=== PATIENT | male | born 1965 ===

== ENCOUNTER 2018-09-17 10:33 | Outpatient (REF) | payer MEDICARE, MEDICAID, SELFPAY ==
[2018-09-17 22:34] LABS: Abs Immature Grans 0.05 k/cumm (0.0-0.09); Absolute Basophil Count 0.02 k/cumm (0.0-0.2); Absolute Eosinophil Count 0.25 k/cumm (0.0-0.7); Absolute Lymphocyte Count 2.48 k/cumm (1.2-3.4); Absolute Monocyte Count 0.96 k/cumm (0.11-0.7); Absolute Neutrophil Count 7.43 k/cumm (1.2-6.7); Basophils % 0.2; Eosinophils % 2.2; HCT 41.1 % (40.0-50.0); HGB 13.9 g/dL (13.5-17.5); Immature Grans % 0.4; Lymphocytes % 22.2; Mean Corp. HGB Concentration 33.8 g/dL (32.0-36.0); Mean Corpuscular Hemoglobin 32.6 pg (27.0-33.0); Mean Corpuscular Volume 96.5 fL (80-95); Monocytes % 8.6; Neutrophils % 66.4; Platelet Count 213 x1000/uL (130-400); RBC 4.26 m/cumm (4.50-6.00); White Blood Cell Count 11.19 k/cumm (4.4-10.8)
[2018-09-17 23:01] LABS: Vitamin D 25 Total 28.9 ng/ml (30-100)
[2018-09-17 23:14] LABS: ALT 40 U/L (12-78); AST 21 U/L (15-37); Albumin 4.6 g/dL (3.4-5.0); Alkaline Phosphatase 59 U/L (46-116); Anion Gap 10.1 mmol/L (3-11); BUN 14 mg/dL (7-18); Bilirubin, Total 0.4 mg/dL (0.2-1.0); CO2 26.9 mmol/L (21.0-32.0); CREATININE 0.91 mg/dL (0.70-1.30); Calcium 9.4 mg/dL (8.5-10.1); Chloride 101 mmol/L (98-107); Cholesterol 206 mg/dL (50-200); Folate 5.7 ng/mL (8.6-20.0); GGT 46 U/L (15-85); Glucose 111 mg/dL (70-100); HDL Cholesterol 42 mg/dL (40-60); LDL CHOLESTEROL 141 mg/dL (<100); Potassium 4.5 mmol/L (3.5-5.1); Sodium 138 mmol/L (136-145); TSH 2.56 uIU/mL (0.358-3.74); Total Protein 7.8 g/dL (6.4-8.2); Triglyceride 96 mg/dL (30-150); Vitamin B12 791 pg/mL (193-986)
[2018-09-17 23:40] LABS: FREE T4 0.73 ng/dL (0.76-1.46)
[2018-09-18 16:22] LABS: T3,Free 3.1 pg/ml (2.8-5.3)
[2018-09-21 08:53] LABS: DHEA Sulfate 119 ug/dl (49-362)
== END 2018-09-17 10:53 ==
LOC: LBN 10:33
PROVIDERS: Visit Provider Acupuncturist
DX: R53.83 Other fatigue (principal); F33.8 Other recurrent depressive disorders; Z13.21 Encounter for screening for nutritional disorder; Z13.29 Encounter for screening for other suspected endocrine disorder; Z13.220 Encounter for screening for lipoid disorders
CPT/HCPCS: 80053; 80061; 82306; 82627; 83721; 82607; 82746; 82977; 84439; 84443; 84481; 85025

== ENCOUNTER 2019-01-01 10:21 | Outpatient (REF) | payer MEDICARE, SELFPAY ==
[2019-01-01 20:39] LABS: ALT 32 U/L (12-78); AST 17 U/L (15-37); Albumin 4.1 g/dL (3.4-5.0); Alkaline Phosphatase 48 U/L (46-116); Anion Gap 8.5 mmol/L (3-11); BUN 16 mg/dL (7-18); Bilirubin, Total 0.2 mg/dL (0.2-1.0); CO2 27.5 mmol/L (21.0-32.0); Calcium 8.7 mg/dL (8.5-10.1); Chloride 104 mmol/L (98-107); Glucose 96 mg/dL (70-100); Potassium 4.6 mmol/L (3.5-5.1); Sodium 140 mmol/L (136-145)
[2019-01-01 20:48] LABS: HCT 41.2 % (40.0-50.0); HGB 13.9 g/dL (13.5-17.5); Mean Corp. HGB Concentration 33.7 g/dL (32.0-36.0); Mean Corpuscular Hemoglobin 32.3 pg (27.0-33.0); Mean Corpuscular Volume 95.6 fL (80-95); Mean Platelet Volume 11.2 fL (8.0-11.0); Platelet Count 225 x1000/uL (130-400); RBC 4.31 m/cumm (4.50-6.00); RBC Distribution Width 12.9 % (11.8-14.1); White Blood Cell Count 10.12 k/cumm (4.4-10.8)
[2019-01-04 08:13] LABS: Vitamin D 25 Total 26.2 ng/ml (30-100)
== END 2019-01-01 10:41 ==
LOC: NCHCN 10:21
PROVIDERS: PCP Family Medicine; Visit Provider Family Medicine
DX: R53.83 Other fatigue (principal); D52.9 Folate deficiency anemia, unspecified; M25.50 Pain in unspecified joint
CPT/HCPCS: 80053; 82306; 85027

== ENCOUNTER 2019-03-30 22:06 | Outpatient (REF) | payer MEDICARE, SELFPAY ==
[2019-04-01 12:24] LABS: Lyme Ab w Rflx to Lyme Confirm Equivocal
[2019-04-02 23:20] LABS: Anaplasma phagocytophilum Negative (Negative); B. miyamotoi PCR Negative (Negative); Babesia divergens/MO-1 Negative (Negative); Babesia duncani Negative (Negative); Babesia microti Negative (Negative); Ehrlichia chaffeensis Negative (Negative); Ehrlichia ewingii/canis Negative (Negative); Ehrlichia muris eauclairensis Negative (Negative)
== END 2019-03-30 22:26 ==
LOC: NCHCN 22:06
PROVIDERS: PCP Family Medicine; Visit Provider Family Medicine
DX: R53.83 Other fatigue (principal); R51 Headache; M25.50 Pain in unspecified joint; M79.10 Myalgia, unspecified site
CPT/HCPCS: 87798; 86618

== ENCOUNTER 2021-08-22 16:18 | Outpatient (REF) | payer MEDICARE, SELFPAY ==
[2021-08-25 11:06] LABS: COVID-19 RT-PCR UVMMC Result Negative (Negative)
== END 2021-08-22 16:19 | disposition home or self-care (01) ==
LOC: NCHCN 16:18
PROVIDERS: PCP Family Medicine; Visit Provider Nurse Practitioner Family
DX: Z20.822 Contact with and (suspected) exposure to COVID-19 (principal); J06.9 Acute upper respiratory infection, unspecified
CPT/HCPCS: U0003

== ENCOUNTER 2021-12-18 16:52 | Outpatient (REF) | payer OTHER, SELFPAY ==
[2021-12-18 15:03] LABS: HCT 45.9 % (40.0-50.0); HGB 15.3 g/dL (13.5-17.5); MCHC 33.3 % (32.0-36.0); MPV 10.6 fL (8.0-11.0); Platelet Count 240 10^3/uL (130-400); RBC 4.78 10^6/uL (4.36-5.78); RDW 12.3 % (11.8-14.1); RDW-SD 43.7 fL; WBC 8.36 10^3/uL (4.4-10.8)
[2021-12-18 15:45] LABS: ALT 31 U/L (16-63); AST 19 U/L (15-37); Albumin 4.4 g/dL (3.4-5.0); Alkaline Phosphatase 51 U/L (46-116); Anion Gap 7.8 mmol/L (3-11); BUN 17 mg/dL (7-18); Bilirubin, Total 0.3 mg/dL (0.2-1.0); CO2 28.2 mmol/L (21.0-32.0); Calcium 9.1 mg/dL (8.5-10.1); Calculated LDL 153 mg/dL (<100); Chloride 104 mmol/L (98-107); Cholesterol 226 mg/dL (<200); Glucose 99 mg/dL (74-106); HDL Cholesterol 40 mg/dL (40-60); Potassium 4.7 mmol/L (3.5-5.1); Sodium 140 mmol/L (136-145); Total Protein 7.5 g/dL (6.4-8.2); Triglyceride 168 mg/dL (<150)
[2021-12-18 17:20] LABS: Prothrombin Time 10.5 sec (9.3-11.0)
== END 2021-12-18 16:53 | disposition home or self-care (01) ==
LOC: NCHCN 16:52
PROVIDERS: PCP Family Medicine; Visit Provider Family Medicine
DX: Z00.00 Encounter for general adult medical examination without abnormal findings (principal); R73.01 Impaired fasting glucose; K74.60 Unspecified cirrhosis of liver
CPT/HCPCS: 80053; 80061; 85027; 83036; 85610

== ENCOUNTER 2021-12-31 18:12 | Outpatient (REF) | payer OTHER, SELFPAY ==
[2021-12-31 21:46] LABS: Folate 14.6 ng/mL (8.6-20.0)
== END 2021-12-31 18:13 | disposition home or self-care (01) ==
LOC: NCHCN 18:12
PROVIDERS: PCP Family Medicine; Visit Provider Family Medicine
DX: D52.9 Folate deficiency anemia, unspecified (principal)
CPT/HCPCS: 82746

== ENCOUNTER 2023-01-08 17:55 | Outpatient (REF) | payer OTHER, SELFPAY ==
--- OUTSIDE RECORDS SUMMARY | 2023-01-08 17:59 | XMS_ITS | CCD ---
Author Name Unknown Address [address] [place] [address] [phone] Organization Unknown Address [address] [place] [address] [phone] Care Team Providers Care Computer Systems Software Engineer Name Role Phone RUTHY REYNOLDS Attending Physician [phone] Vital Signs Unknown or Not Available. Allergies Allergy Code Allergy Type Reaction Status No Known Allergies 0 No known allergies Active Procedures Unknown or Not Available. History of Immunizations Unknown or Not Available. Problems Unknown or Not Available. Results [facility] COVID RHEONIX* - Joey ect Date/Time: 01/22/2022 09:44 Test Name Code Test Result Test Units Test Ref [facility]ang e [facility]- 08472-1 TRAVEL N/A SARS COV2 RNA: 66511-0 NEGATIVE N/A REFERENCE RANGE: NEGAT Active Medications Unknown or Not Available. Medications Administered During Visit Unknown or Not Available. Encounters Encounter Diagnosis Diagnosis Code Start Date Exposure to SARS-CoV-2 [id number] Social History Smoking Status Code Start Date End Date Never smoker [id number] Patient Decision Aids Unknown or Not Available. Discharge Instructions You were admitted to [facility] on 01/22/2022 22:08 with a principal diagnosis of Contact with and (suspected) exposure to COVID-19 You had the following tests done:[facility] COVID RHEONIX* You were discharged from [facility] on 01/22/2022 22:08 Should you have any questions prior to discharge, please contact a member of your healthcare team. If you have left the hospital and have any questions, please contact your primary care physician. Chief Complaint and Reason For Visit Unknown or Not Available. Function Status Unknown or Not Available. Plan of Care Unknown or Not Available. Referral/Transition of Care Unknown or Not Available.
[2023-01-08 21:49] LABS: Abs Immature Grans 0.23 10^3/uL (0.0-0.06); Absolute Basophil Count 0.08 10^3/uL (0.0-0.2); Absolute Eosinophil Count 0.42 10^3/uL (0.0-0.7); Absolute Lymphocyte Count 4.06 10^3/uL (1.2-3.4); Absolute Monocyte Count 0.84 10^3/uL (0.1-0.8); Basophils % 0.7; Eosinophils % 3.9; HCT 39.2 % (40.0-50.0); HGB 12.9 g/dL (13.5-17.5); Immature Grans % 2.1; Lymphocytes % 37.3; MCHC 32.9 % (32.0-36.0); MCV 97 fL (80-95); MPV 9.5 fL (8.0-11.0); Monocytes % 7.7; Neutrophils % 48.3; Platelet Count 483 10^3/uL (130-400); RBC 4.03 10^6/uL (4.36-5.78); RDW 11.6 % (11.8-14.1); RDW-SD 41.3 fL; WBC 10.88 10^3/uL (4.4-10.8)
[2023-01-08 21:50] LABS: Absolute Neutrophil Count 5.26 10^3/uL (1.2-6.7)
[2023-01-08 22:02] LABS: ALT 95 U/L (16-63); AST 40 U/L (15-37); Albumin 3.5 g/dL (3.4-5.0); Alkaline Phosphatase 63 U/L (46-116); Anion Gap 4.5 mmol/L (3-11); BUN 13 mg/dL (7-18); Bilirubin, Total 0.1 mg/dL (0.2-1.0); CO2 32.5 mmol/L (21.0-32.0); Calcium 9.7 mg/dL (8.5-10.1); Chloride 101 mmol/L (98-107); Glucose 103 mg/dL (74-106); Potassium 5.3 mmol/L (3.5-5.1); Sodium 138 mmol/L (136-145); Total Protein 7.8 g/dL (6.4-8.2)
== END 2023-01-08 17:56 | disposition home or self-care (01) ==
LOC: NCHCN 17:55
PROVIDERS: PCP Family Medicine; Visit Provider Nurse Practitioner Family
DX: R50.9 Fever, unspecified (principal); R19.7 Diarrhea, unspecified
CPT/HCPCS: 80053; 85025

== ENCOUNTER 2023-01-16 16:06 | Outpatient (REF) | payer OTHER, SELFPAY ==
[2023-01-16 21:57] LABS: HCT 41.2 % (40.0-50.0); MCH 32.4 pg (27.0-33.0); MCV 95 fL (80-95); MPV 9.8 fL (8.0-11.0); Platelet Count 457 10^3/uL (130-400); RBC 4.32 10^6/uL (4.36-5.78); RDW-SD 42.1 fL; WBC 8.65 10^3/uL (4.4-10.8)
[2023-01-16 22:33] LABS: ALT 47 U/L (16-63); AST 30 U/L (15-37); Albumin 3.8 g/dL (3.4-5.0); Alkaline Phosphatase 57 U/L (46-116); Anion Gap 9.8 mmol/L (3-11); BUN 12 mg/dL (7-18); Bilirubin, Total 0.2 mg/dL (0.2-1.0); CO2 26.2 mmol/L (21.0-32.0); Calcium 8.9 mg/dL (8.5-10.1); Calculated LDL 98 mg/dL (<100); Chloride 104 mmol/L (98-107); Cholesterol 186 mg/dL (<200); Glucose 133 mg/dL (74-106); HDL Cholesterol 37 mg/dL (40-60); Potassium 4.1 mmol/L (3.5-5.1); Sodium 140 mmol/L (136-145); Total Protein 7.7 g/dL (6.4-8.2); Triglyceride 257 mg/dL (<150)
[2023-01-16 22:34] LABS: Hemoglobin A1C 6.3 % (<5.7)
[2023-01-16 22:35] LABS: Folate > 20.0 ng/mL (8.6-20.0)
[2023-01-16 22:38] LABS: Vitamin D 25 Total 37.1 ng/mL (30-100)
== END 2023-01-16 16:07 | disposition home or self-care (01) ==
LOC: NCHCN 16:06
PROVIDERS: PCP Family Medicine; Visit Provider Family Medicine
DX: R73.03 Prediabetes; D64.9 Anemia, unspecified; E55.9 Vitamin D deficiency, unspecified; R79.89 Other specified abnormal findings of blood chemistry
CPT/HCPCS: 80053; 80061; 82306; 85027; 82746; 83036

== ENCOUNTER 2023-10-24 20:55 | Outpatient (REF) | payer OTHER, SELFPAY ==
[2023-10-24 21:47] LABS: Hemoglobin A1C 5.9 % (<5.7)
[2023-10-24 21:53] LABS: Folate > 20.0 ng/mL (8.6-20.0)
[2023-10-24 21:58] LABS: Vitamin D 25 Total 32.5 ng/mL (30-100)
== END 2023-10-24 20:56 | disposition home or self-care (01) ==
LOC: NCHCN 20:55
PROVIDERS: PCP Family Medicine; Visit Provider Family Medicine
DX: D64.9 Anemia, unspecified (principal); E55.9 Vitamin D deficiency, unspecified; R73.03 Prediabetes
CPT/HCPCS: 82306; 82746; 83036

== ENCOUNTER 2024-08-24 16:03 | Outpatient (REF) | payer OTHER, SELFPAY ==
[2024-08-25 18:37] LABS: PSA, Screening 1.2 ng/mL (<=4.5)
== END 2024-08-24 16:04 | disposition home or self-care (01) ==
LOC: NCHCN 16:03
PROVIDERS: PCP Family Medicine; Visit Provider Family Medicine
DX: Z12.5 Encounter for screening for malignant neoplasm of prostate (principal)
CPT/HCPCS: 84153

== ENCOUNTER 2024-12-16 11:15 | Outpatient (REF) | payer MEDICARE, SELFPAY ==
[2024-12-16 14:17] LABS: HCT 43.4 % (40.0-50.0); HGB 14.8 g/dL (13.5-17.5); MCH 32.3 pg (27.0-33.0); MCHC 34.1 % (32.0-36.0); MCV 95 fL (80-95); MPV 10.7 fL (8.0-11.0); Platelet Count 217 10^3/uL (130-400); RBC 4.58 10^6/uL (4.36-5.78); RDW 12.6 % (11.8-14.1); RDW-SD 43.8 fL; WBC 8.34 10^3/uL (4.4-10.8)
[2024-12-16 14:35] LABS: Hemoglobin A1C 5.9 % (<5.7)
[2024-12-16 14:38] LABS: ALT 33 U/L (16-63); AST 28 U/L (15-37); Albumin 4.2 g/dL (3.4-5.0); Alkaline Phosphatase 53 U/L (46-116); Anion Gap 7.6 mmol/L (3-11); BUN 12 mg/dL (7-18); Bilirubin, Total 0.5 mg/dL (0.2-1.0); CO2 26.4 mmol/L (21.0-32.0); CREATININE 0.9 mg/dL (0.70-1.30); Calcium 9.3 mg/dL (8.5-10.1); Chloride 106 mmol/L (98-107); Estimated GFR 97.17 (mL/min/1.73m2); Glucose 98 mg/dL (74-106); Potassium 4.6 mmol/L (3.5-5.1); Sodium 140 mmol/L (136-145); TSH 2.71 uIU/mL (0.36-3.74); Total Protein 7.8 g/dL (6.4-8.2)
== END 2024-12-16 11:16 | disposition home or self-care (01) ==
LOC: NCHCN 11:15
PROVIDERS: PCP Family Medicine; Visit Provider Physician Assistant
DX: R73.03 Prediabetes (principal); R40.0 Somnolence
CPT/HCPCS: 80053; 85027; 83036; 84443

== ENCOUNTER 2025-01-27 14:13 | Outpatient (REF) | payer MEDICARE, SELFPAY ==
[2025-01-27 16:14] LABS: Ferritin 212 ng/mL (26-388); Vitamin D 25 Total 30 ng/mL (30-100)
[2025-01-28 11:47] LABS: Lyme Ab w Rflx to Lyme Confirm Negative (Negative)
[2025-01-30 21:34] LABS: Anaplasma phagocytophilum Negative (Negative); B. miyamotoi PCR Negative (Negative); Babesia divergens/MO-1 Negative (Negative); Babesia duncani Negative (Negative); Babesia microti Negative (Negative); Ehrlichia chaffeensis Negative (Negative); Ehrlichia ewingii/canis Negative (Negative); Ehrlichia muris eauclairensis Negative (Negative)
== END 2025-01-27 14:14 | disposition home or self-care (01) ==
LOC: NCHCN 14:13
PROVIDERS: PCP Family Medicine; Visit Provider Family Medicine
DX: S40.861S Insect bite (nonvenomous) of right upper arm, sequela (principal); E55.9 Vitamin D deficiency, unspecified; W57.XXXA Bitten or stung by nonvenomous insect and other nonvenomous arthropods, initial encounter; G47.61 Periodic limb movement disorder
CPT/HCPCS: 82306; 87798; 82728; 86618